=== PATIENT | female | born 1980 | race Caucasian/White ===

== ENCOUNTER 2024-12-27 17:00 | Emergency (ER) | payer BC, SELFPAY ==
--- NOTE | 2024-12-27 17:10 | ED_ITS ---
HPI - URI/Sore Throat General Chief Complaint: Upper Respiratory Infection Stated Complaint: Flu like symptoms Time Seen by Provider: 12/27/24 17:10 Source: patient, RN notes reviewed and old records reviewed Mode of arrival: ambulatory Limitations: no limitations History of Present Illness HPI Narrative: Patient presents with complaints of cough and chest congestion for 2 weeks. She reports that cough is becoming increasingly productive. She states that she has began to notice some wheezing, particularly when lying down at night. She is unsure of fever status. She has been taking Mucinex D with moderate results. She is not in any distress, including respiratory distress. Related Data Home Medications ?Medication ?Instructions ?Recorded ?Confirmed ?Last Taken ?Type alprazolam 0.25 mg tablet mg 12/27/24 Unknown History bupropion HCl 300 mg 24 hr tablet, mg PO 12/27/24 Unknown History extended release duloxetine 30 mg capsule,delayed mg PO 12/27/24 Unknown History release lisdexamfetamine 30 mg capsule mg 12/27/24 Unknown History lisdexamfetamine 40 mg capsule mg 12/27/24 Unknown History Allergies Allergy/AdvReac Type Severity Reaction Status Date / Time No Known Allergies Allergy Verified 12/27/24 17:04 Review of Systems 2 Review of Systems: All systems reviewed & are unremarkable except as noted in HPI and below Constitutional: Constitutional: Reports no additional constitutional complaints and Reports lethargy ENT: Reports system reviewed and no additional complaints, except as documented and Reports nasal congestion Cardiovascular: Cardiovascular: Reports no additional cardiovascular complaints Respiratory: Respiratory: Reports no additional respiratory complaints, Reports chest congestion, Reports cough, Reports excessive phlegm production and Reports wheezing Gastrointestinal: Gastrointestinal: Reports no additional gastrointestinal complaints PMFSH Comments At the time of my signature, I reviewed and agree with the nursing past medical, surgical, social, and family history. There is no relevant family history pertinent to the patient complaint. Exam Const: General: cooperative, no acute distress, alert and awake Orientation/consciousness: oriented to person, oriented to place and oriented to time HENMT: Head: normal to inspection Mouth: Yes moist mucous membranes Throat: posterior oropharynx normal Resp: Effort & Inspection: normal respiratory effort and able to speak in complete sentences Auscultation: clear to auscultation bilaterally, no crackles, no rales, no rhonchi and wheezes scattered wheezes Cardio: Palpation: normal PMI Rate: regular rate Rhythm: regular rhythm Heart sounds: S1 normal heart sound present and S2 normal heart sound present Neuro: General: oriented to person, oriented to place and oriented to time Cranial nerves: Yes CN's II-XII intact bilaterally Psych: Appearance: grossly normal Thought process: Normal thought process present Insight: Good insight present (Psych) Judgement: Good judgement present (Psych) Course Course Level of Care: Express Care Visit Vital Signs Vital signs: Reviewed MDM - URI/Sore Throat MDM Narrative Medical decision making narrative: Patient with cough for 2 weeks. Mild scattered wheezes on exam, no respiratory distress. Start bronchodilators and steroid burst, azithromycin for added anti- inflammatory properties Discharge instructions reviewed with patient, as well as provided in writing per nursing staff. The instructions also include specific and strict return/GO TO THE ER as well as f/u information. All questions have been answered, and the patient deny any further questions with discharge and discharge plan. Some parts of this dictation were generated by voice recognition software and may contain typographical and/or grammatical inaccuracies. Differential Diagnosis Differential diagnosis: Likely upper respiratory infection, otitis media, viral infection, bronchitis and pharyngitis Medical Records Attestation: I reviewed the patient's medical records. Lab Data Attestation: I reviewed the patient's lab results. Discharge Plan Discharge Clinical Impression: Bronchitis Patient Disposition: Home, Self-Care Condition: Stable Instructions: Antibiotic Form, Acute Bronchitis (ED) Additional Instructions: Take medication as prescribed. Follow with primary care provider. Emergency department for new or worse symptoms Patient Language: Occitan Prescriptions: New azithromycin 250 mg tablet See Rx Instructions .ROUTE .COMPLEX Qty: 6 0RF Rx Instructions: For 250 mg dose pack: take 500 mg today (day 1), then 250 mg for 4 days (days 2-5) albuterol sulfate [Ventolin HFA] 90 mcg/actuation HFA aerosol inhaler 2 puff inhalation QID PRN (Reason: shortness of breath or wheezing) Qty: 8.5 0RF prednisone 50 mg tablet 50 mg PO DAILY Qty: 5 0RF benzonatate 200 mg capsule 200 mg PO TID PRN (Reason: cough) Qty: 30 0RF No Action alprazolam 0.25 mg tablet bupropion HCl 300 mg tablet extended release 24 hr PO duloxetine 30 mg capsule,delayed release(DR/EC) PO lisdexamfetamine 30 mg capsule lisdexamfetamine 40 mg capsule Follow-up/Referrals: PHYSICIAN,FUNERAL DIRECTOR [Primary Care Provider] - 2 Weeks Stand Alone Forms: Work/School Release IP Time of Disposition: 17:52
[2024-12-27 17:13] VITALS: BP 117/75; PULSE 97; RESP 16; TEMP 36.8; O2SAT 100
== END 2024-12-27 17:55 | disposition home or self-care (01) ==
PROVIDERS: Emergency Provider Nurse Practitioner Family
DX: J40 Bronchitis, not specified as acute or chronic (principal)
CPT/HCPCS: 99203; G0463

== ENCOUNTER 2025-02-13 20:22 | Emergency (ER) | payer BC, SELFPAY ==
[2025-02-13] VITALS (22 sets, daily range): BP systolic 104–118; BP diastolic 66–76; PULSE 86–92; RESP 15–16; TEMP 36.4–36.8; O2SAT 98–100
--- NOTE | ~2025-02-13 | CT_ITS ---
CLINICAL INDICATION: Left-sided flank pain COMPARISON: None. TECHNIQUE: Multiple contiguous axial images of the abdomen and pelvis were performed without the admi nistration of intravenous contrast The dose-length product (DLP) was 660.35 mGy-cm. Automated exposure control and iterative reconstruction technique were employed. FINDINGS/OBSERVATIONS: Visualized lower thorax: The bilateral lung bases are clear. The heart is of normal size, without pericardial effusion. Liver: The liver demonstrates homogeneous attenuation and is not enlarged. Gallbladder and biliary system: The gallbladder is only minimally distended, and otherwise unremarkable. Pancreas: Limited evaluation of the pancreas secondary to the lack of intravenous contrast. Spleen: Punctate calcifications identified within the splenic parenchyma, suggesting prior granulomat ous disease. The remainder of the spleen demonstrates otherwise homogeneous attenuation and is not enlarged. Kidneys: Global enlargement of the left kidney. 14 mm calculus within the upper pole of the left kidney. Left-sided hydroureteronephrosis without a discrete calculus identified along the course of the left ureter. The right kidney is unremarkable, as is the right ureter. Adrenal glands: Unremarkable. Gastrointestinal tract: Colonic diverticulosis without surrounding inflammatory change. Appendix: The appendix is not definitively visualized. However, no pericecal inflammatory change is identified suggest the presence of acute appendicitis. Vasculature: Unremarkable. Lymph nodes: No pathologically enlarged or morphologically suspicious lymph nodes within the retroperitoneum or at the root of the mesentery. Pelvic structures: The bladder is only minimally distended and otherwise unremarkable.The uterus is anteverted and antef lexed, and otherwise unremarkable. Body wall and musculoskeletal: Small fat-containing umbilical hernia. No significant degenerative disease within the lower thoracic or lumbosacral spine. IMPRESSION: Left-sided hydroureteronephrosis without a discrete calculus identified along the course of the left ureter. 14 mm calculus within the upper pole of the left kidney. Findings suggesting prior granulomatous disease. Reviewed, dictated and finalized at location A. IMPRESSION: Left-sided hydroureteronephrosis without a discrete calculus identified along t he course of the left ureter. 14 mm calculus within the upper pole of the left kidney. Findings suggesting prior granulomatous disease.
--- OUTSIDE RECORDS SUMMARY | 2025-02-13 20:23 | XMS_ITS | Data Portability ---
Author Organization [facility] Address [address] [place] [address] Care Team Providers Care Inspector Penetrant Name Role Phone GUALBERTO COTE Primary Care Provider [phone] Assessment Encounter Date Assessment Date Assessment LastModified by Organization Details LastModified Time 06/08/2023 06/08/2023 Annual gynecological exam performed. Patient will come back in a year unless there are new symptoms. Not available 06/08/2023 18:28:21 Plan of Treatment Reminders Order Date Submit Date Provider Last Modified By Organization Details Last Modified Time Details Appointments PELVIC PAIN 2024 04:00P M ENRRIQUE STREETER NP Not available Not available Not available Lab vitamin D, 25-hydrox y, total, serum 2022 023 [facility] (Lab), [address] [place], [address], 06/11/2023 07:06:51 hormone panel, serum or plasma 2022 023 [facility] (Lab), [address] [place], [address], 06/11/2023 07:06:51 HbA1c (hemoglob in A1c), blood 2022 023 [facility] (Lab), [address] [place], [address], 06/11/2023 07:06:49 lipid panel, blood 2022 023 [facility] (Lab), [address] [facility], [place], [address], 06/11/2023 07:06:49 CBC w/ auto diff 2022 023 [facility] (Lab), [address] [facility], [place], [address], 06/11/2023 07:06:48 CMP, serum or plasma 2022 023 [facility] (Lab), [address] [facility], [place], [address], 06/11/2023 07:06:50 TSH, serum or plasma 2022 023 [facility] (Lab), [address] [facility], [place], [address], 06/11/2023 07:06:50 Referral None recorded. Procedures None recorded. Surgeries None recorded. Imaging MAMMO, screening , bilateral [address] [facility], [address], [place] [address], [place], [address], 10/07/2023 15:49:32 Medication Orders None recorded. Patient TargetsNo targets recorded. Patient InstructionsNo instructions recorded. Reason for Referral None Reported. Results Created Date Observation Date Name Description Value Unit Range Abnormal Flag Note LastModifiedBy Organization Detail LastModifiedTime 06/08/20 23 06/08/2023 IMAGE GUIDE D PAP AND HPV REGAR DLESS image guided Pap, HPV regardless of Pap result SEE RESULT S BELOW CASE REPOR T: Cytol ogy Gynec ologi bryce Repor t Case: [id number] Autho esha g Provi aleksandr: Marino Merrill Colle cted: 06/08 3897 RADIO TESTER Order ing Locat ion: [place] [facility] Recei vaishali: 06/09 0597 First Scree n: Anton mpass ak, Sivil ay, CT Rescr een: Roma Cam ret, CT Speci men: Scree jim Pap - Image d, Cervi x STATE MENT OF ADEQU ACY: Satis facto ry for evalu ation Trans forma tion zone compo nent absen t The absen ce of an endoc ervic al compo nent was confi rmed by an addit ional scree ner. FINAL DIAGN OSIS: Negat reji for Intra epith elial Lesio n or Nelda wells (NIL) . Shift in tobias sugge stive of bacte rial vagin osis. Elect ninfa kim dinora d by Roma Cam ret, CT on 2022 at 6:14 AM ----- ----- ----- ----- ----- ----- ----- ----- ----- ----- ----- ----- ----- ----- ----- ----- ----- ---- HPV RESUL TS: HPV mRNA E6/E7 : No HPV mRNA Detec rebecca NOTE: This high risk HPV mRNA assay detec ts fourt een high- risk HPV types (16, 18, 31, 33, 35, 39, 45, 51, 52, 56, 58, 59, 66, 68) witho ut diffe renti ation . COMME NT: This speci men was revie wed by a Cytot echno logis t and/o r Patho logis t (as indic ated in this repor t) after evalu ation using the Thinp rep Imagi ng Syste m. CLINI BRYCE INFOR MATIO N: Menst rual Statu s: LMP (if appli cable ): Clini bryce Histo ry/Pr eviou s Pap: Type of Neopl demetrius (if appli cable ): Signi fican t Clini bryce Findi ngs: Other Histo ry: Hormo williams (if appli cable ): PAP EDUCA HENRY L NOTE: The Pap Test is a scree jim test with an inher ent false negat reji rate. Liqui d-bas ed sampl ing may decre ase, but will not elimi corky, false negat reji resul ts. A negat reji resul t does not precl ude the prese nce and/o r devel opmen t of disea se, since the prese nce of abnor mal cells in the sampl e depen ds on the locat ion of the lesio n and sampl ing techn ique. Martha nued regul ar scree jim is the best metho d of cance r preve ntion . If repor rebecca cytol ogic findi ng do not corre late with physi bryce and/o r histo rical findi ngs, furth er inves tigat ion is recom wni d, as clini cynthia warrmaci nted. Not Available [facility] (Lab) [address], [place], [address], 06/10/2023 07:19:12 06/08/20 23 06/08/2023 CBC W/DIF F WBC 7.0 10'3/ uL 3.6-10 .2 Not Available [facility] (Lab) [address], [place], [address], 06/11/2023 07:06:48 06/08/20 23 06/08/2023 CBC W/DIF F RBC 4.48 10'6/ uL (based on docume nted legal sex) 4.10-5 .30 Not Available [facility] (Lab) [address], [place], [address], 06/11/2023 07:06:48 06/08/20 23 06/08/2023 CBC W/DIF F HGB 13.5 g/dL (based on docume nted legal sex) 11.9-1 5.8 Not Available [facility] (Lab) [address], [place], [address], 06/11/2023 07:06:48 06/08/20 23 06/08/2023 CBC W/DIF F HCT 42.8 % (based on docume nted legal sex) 37.4-4 8.3 Not Available [facility] (Lab) [address], [place], [address], 06/11/2023 07:06:48 06/08/20 23 06/08/2023 CBC W/DIF F MCV 95.5 fL 82.0-9 9.0 Not Available [facility] (Lab) [address] [facility], [place], [address], 06/11/2023 07:06:48 06/08/20 23 06/08/2023 CBC W/DIF F MCH 30.1 pg 27.0-3 3.0 Not Available [facility] (Lab) [address], [place], [address], 06/11/2023 07:06:48 06/08/20 23 06/08/2023 CBC W/DIF F MCHC 31.5 g/dL 32.0-3 6.0 low Not Available [facility] (Lab) [address], [place], [address], 06/11/2023 07:06:48 06/08/20 23 06/08/2023 CBC W/DIF F RDW 12.9 % 11.0-1 5.0 Not Available [facility] (Lab) [address] [facility], [place], [address], 06/11/2023 07:06:48 06/08/20 23 06/08/2023 CBC W/DIF F plt 251 10'3/ uL 150-45 0 Not Available [facility] (Lab) [address], [place], [address], 06/11/2023 07:06:48 06/08/20 23 06/08/2023 CBC W/DIF F MPV 12.3 fL 9.8-12 .7 Not Available [facility] (Lab) [address] [facility], [place], [address], 06/11/2023 07:06:48 06/08/20 23 06/08/2023 CBC W/DIF F NRBC's 0.0 % 0 Not Available [facility] (Lab) [address] [facility], [place], [address], 06/11/2023 07:06:48 06/08/20 23 06/08/2023 CBC W/DIF F absolute NRBCs 0.0 10'3/ uL 0 Not Available [facility] (Lab) [address] [facility], [place], [address], 06/11/2023 07:06:48 06/08/20 23 06/08/2023 CBC W/DIF F neutrophils 57.6 % 37.0-7 2.0 Not Available [facility] (Lab) [address] [facility], [place], [address], 06/11/2023 07:06:48 06/08/20 23 06/08/2023 CBC W/DIF F lymphocytes 30.4 % 16.0-4 8.0 Not Available [facility] (Lab) [address] [facility], [place], [address], 06/11/2023 07:06:48 06/08/20 23 06/08/2023 CBC W/DIF F monocytes 8.3 % 4.0-14 .0 Not Available [facility] (Lab) [address] [facility], [place], [address], 06/11/2023 07:06:48 06/08/20 23 06/08/2023 CBC W/DIF F eosinophils 3.0 % 0.0-9. 0 Not Available [facility] (Lab) [address] [facility], [place], [address], 06/11/2023 07:06:48 06/08/20 23 06/08/2023 CBC W/DIF F basophils 0.6 % 0.0-2. 0 Not Available [facility] (Lab) [address] [facility], [place], [address], 06/11/2023 07:06:48 06/08/20 23 06/08/2023 CBC W/DIF F immature granulocytes 0.1 % no define d refere nce range Not Available [facility] (Lab) [address] [facility], [place], [address], 06/11/2023 07:06:48 06/08/20 23 06/08/2023 CBC W/DIF F absolute neutrophils 4.0 10'3/ uL 1.1-6. 0 Not Available [facility] (Lab) [address] [facility], [place], [address], 06/11/2023 07:06:48 06/08/20 23 06/08/2023 CBC W/DIF F absolute lymphocytes 2.1 10'3/ uL 0.7-3. 4 Not Available [facility] (Lab) [address] [facility], [place], [address], 06/11/2023 07:06:48 06/08/20 23 06/08/2023 CBC W/DIF F absolute monocytes 0.6 10'3/ uL 0.3-1. 0 Not Available [facility] (Lab) [address] [facility], [place], [address], 06/11/2023 07:06:48 06/08/20 23 06/08/2023 CBC W/DIF F absolute eosinophils 0.2 10'3/ uL 0.0-0. 6 Not Available [facility] (Lab) [address] [facility], [place], [address], 06/11/2023 07:06:48 06/08/20 23 06/08/2023 CBC W/DIF F absolute basophils 0.0 10'3/ uL 0.0-0. 1 Not Available [facility] (Lab) [address] [facility], [place], [address], 06/11/2023 07:06:48 06/08/20 23 06/08/2023 CBC W/DIF F absolute immature granulocytes 0.0 10'3/ uL 0.00-0 .10 2022 4:56 AM: P indic ates parti al resul ts on a panel have been relea sed. Addit ional resul ts will follo w. 2022 4:56 AM: This resul t has been final verif ied. No addit ional or medley ed resul ts are expec rebecca. Not Available [facility] (Lab) [address] [facility], [place], [address], 06/11/2023 07:06:48 06/08/20 23 06/08/2023 HEMOG LOBIN A1C hemoglobin A1C 5.0 % 0-5.6 The Ameri can Diabe ulises Assoc iatio n recom mends that a prima ry goal of thera py shoul d be a HBA1C of < 7% and that physi cians shoul d reeva luate the treat ment regim en in patie nts with HBA1C value s consi stent ly > 8%. <5.7% Lisa l 5.7 - 6.4% Incre ased risk for diabe ulises >=6.5 % Diagn ostic of diabe ulises <7.0% Goal of thera py >8.0% Actio n sugge sted Not Available [facility] (Lab) [address] [facility], [place], [address], 06/11/2023 07:06:49 06/08/2006/08/2023 LIPID PANEL ,AMA (LDL- CALC) total cholesterol 159 mg/dL 0-199 Not Available [facility] (Lab) [address] [facility], [place], [address], 06/11/2023 07:06:49 06/08/2006/08/2023 LIPID PANEL ,AMA (LDL- CALC) triglyceride s 134 mg/dL 0.00-1 50.00 NCEP Refer ence Value s for Trigl yceri salvador: Lisa l: <150 mg/dL Borde rline High: 150 - 199 mg/dL High: 200 - 499 mg/dL Very High: >/= 500 mg/dL Not Available [facility] (Lab) [address] [facility], [place], [address], 06/11/2023 07:06:49 06/08/2006/08/2023 LIPID PANEL ,AMA (LDL- CALC) HDL cholesterol 53 mg/dL >40 Not Available [facility] (Lab) [address] [facility], [place], [address], 06/11/2023 07:06:49 06/08/2006/08/2023 LIPID PANEL ,AMA (LDL- CALC) LDL cholesterol 83 mg/dL 0-99 Cutof f value s recom win d by the Natio nal Ghada stero l Educa tion Progr am: TRUDY ABLE: Ghada stero l <200 mg/dL LDL <100 mg/dL BORDE RLINE : Ghada stero l 200-2 39 mg/dL LDL 101-1 59 mg/dL HIGHE R RISK: Ghada stero l >240 mg/dL LDL >160 mg/dL , HDL <40 mg/dL Not Available [facility] (Lab) [address] [facility], [place], [address], 06/11/2023 07:06:49 06/08/2006/08/2023 LIPID PANEL ,AMA (LDL- CALC) non-HDL cholesterol 106 mg/dL no refere nce range A reaso nable goal for non-H DL ghada stero l is one that is 30 mg/dL highe r than the LDL ghada stero l goal. Not Available [facility] (Lab) [address] [facility], [place], [address], 06/11/2023 07:06:49 06/08/2006/08/2023 LIPID PANEL ,AMA (LDL- CALC) chol/HDL ratio 3.0 . 0.0-5. 0 On February 16, 2023, [facility] labor atori es jasmyne ed the equat ion for calcu latin g estim ated low-d ensit y lipop rotei n-cho leste rol (LDL- C) from the Fried velasquez equat ion to the Sarah n/Dhruv taylor equat ion. This new equat ion is only valid for lipid panel s with trigl yceri salvador < 400 mg/dL . Studi es jose demon strat ed that this new equat ion will impro ve the accur acy of LDL-C , espec ially in scena sanchez when LDL-C vanessa ntrat ions are relat ively low (< 100 mg/dL ), trigl yceri salvador are eleva rebecca, or patie nt is non-f astin g. Refer ences : - Sarah hill, Denton Morel, Gerardo Zafar , Jas hill, Leeroy Coffman, Leeroy garcia, Bran menendez , and Huseyin Pool . 2013. Comp ariso n of a Novel Metho d vs the Fried velasquez Equat ion for Estim ating Low-D ensit y Lipop rotei n Ghada stero l Level s from the Stand [facility] Lipid Profi milad. HIRAM: The Journ al of the Ameri can Medic al Assoc iatio n 310 (19): 2060- . - Elisa diaz V, Sylvia J, Patel diaz A, Dilma M, Jordyn woods R, Franck diaz E, Sulaiman menendez RS, Yrn SR, Sarah hill SS. Fast ing Versu s Nonfa sting and Low-D ensit y Lipop rotei n Ghada stero l Accur acy. Circu latio n. 2017Oct 26;137 (1):1 0-19. Not Available [facility] (Lab) [address] [facility], [place], [address], 06/11/2023 07:06:49 06/08/20 23 06/08/2023 CMP(C OMPRE HENSI VE METAB OLIC PANEL ) sodium 141 mmol/ L 133-14 6 Not Available [facility] (Lab) [address] [facility], [place], [address], 06/11/2023 07:06:50 06/08/20 23 06/08/2023 CMP(C OMPRE HENSI VE METAB OLIC PANEL ) potassium 4.0 mmol/ L 3.5-5. 1 Not Available [facility] (Lab) [address] [place], [address], 06/11/2023 07:06:50 06/08/20 23 06/08/2023 CMP(C OMPRE HENSI VE METAB OLIC PANEL ) chloride 107 mmol/ L 98-107 Not Available [facility] (Lab) [address] [facility], [place], [address], 06/11/2023 07:06:50 06/08/20 23 06/08/2023 CMP(C OMPRE HENSI VE METAB OLIC PANEL ) carbon dioxide 24 mmol/ L 21-31 Not Available [facility] (Lab) [address] [facility], [place], [address], 06/11/2023 07:06:50 06/08/20 23 06/08/2023 CMP(C OMPRE HENSI VE METAB OLIC PANEL ) anion gap 10 mmol/ L 4-13 Not Available [facility] (Lab) [address] [facility], [place], [address], 06/11/2023 07:06:50 06/08/20 23 06/08/2023 CMP(C OMPRE HENSI VE METAB OLIC PANEL ) blood urea nitrogen 8 mg/dL 7-25 Not Available [facility] (Lab) [address] [facility], [place], [address], 06/11/2023 07:06:50 06/08/20 23 06/08/2023 CMP(C OMPRE HENSI VE METAB OLIC PANEL ) creatinine 0.88 mg/dL 0.60-1 .30 Not Available [facility] (Lab) [address] [facility], [place], [address], 06/11/2023 07:06:50 06/08/20 23 06/08/2023 CMP(C OMPRE HENSI VE METAB OLIC PANEL ) egfrcr (CKD-epi 2020) 83 mL/mi n/1.7 3_m2 >=60 Not Available [facility] (Lab) [address] [facility], [place], [address], 06/11/2023 07:06:50 06/08/20 23 06/08/2023 CMP(C OMPRE HENSI VE METAB OLIC PANEL ) calcium 9.4 mg/dL 8.3-10 .5 Not Available [facility] (Lab) [address] [facility], [place], [address], 06/11/2023 07:06:50 06/08/20 23 06/08/2023 CMP(C OMPRE HENSI VE METAB OLIC PANEL ) glucose 98 mg/dL 70-100 Not Available [facility] (Lab) [address] [facility], [place], [address], 06/11/2023 07:06:50 06/08/20 23 06/08/2023 CMP(C OMPRE HENSI VE METAB OLIC PANEL ) protein, total 6.2 g/dL 6.4-8. 3 low Not Available [facility] (Lab) [address] [facility], [place], [address], 06/11/2023 07:06:50 06/08/20 23 06/08/2023 CMP(C OMPRE HENSI VE METAB OLIC PANEL ) albumin 4.0 g/dL 3.5-5. 0 Not Available [facility] (Lab) [address] [facility], [place], [address], 06/11/2023 07:06:50 06/08/20 23 06/08/2023 CMP(C OMPRE HENSI VE METAB OLIC PANEL ) ALT 13 units /L 9-43 Not Available [facility] (Lab) [address] [facility], [place], [address], 06/11/2023 07:06:50 06/08/20 23 06/08/2023 CMP(C OMPRE HENSI VE METAB OLIC PANEL ) alkaline phosphatase 51 units /L 34-104 Not Available [facility] (Lab) [address] [facility], [place], [address], 06/11/2023 07:06:50 06/08/20 23 06/08/2023 CMP(C OMPRE HENSI VE METAB OLIC PANEL ) AST 15 units /L 13-39 Not Available [facility] (Lab) [address] [facility], [place], [address], 06/11/2023 07:06:50 06/08/20 23 06/08/2023 CMP(C OMPRE HENSI VE METAB OLIC PANEL ) bilirubin, total 0.4 mg/dL 0.2-1. 2 Not Available [facility] (Lab) [address] [facility], [place], [address], 06/11/2023 07:06:50 06/08/20 23 06/08/2023 TSH, REFLE X FREE T4 TSH 1.36 uIU/m L 0.30-5 .33 Not Available [facility] (Lab) [address] [facility], [place], [address], 06/11/2023 07:06:50 06/08/20 23 06/08/2023 FSH, LH, ESTRA DIOL estradiol 258.0 pg/mL This assay was perfo rmed using [employer] ratio n reage nts and test kits. Value s obtai amparo with other assay metho ds or kits canno t be used inter medley eably . Femal e Estra diol Range s: Folli cular phase 12.4- 233 pg/mL Ovula tion phase 41.0- 398 pg/mL Lutea l phase 22.3- 341 pg/mL Postm enopa usal< 5-138 pg/mL Healt hy Pregn ant Women 1st Trime ster1 54-32 43 pg/mL 2nd Trime ster1 561-2 1280 pg/mL 3rd Trime ster8 525-> 51952 pg/mL Not Available [facility] (Lab) [address] [facility], [place], [address], 06/11/2023 07:06:51 06/08/20 23 06/08/2023 FSH, LH, ESTRA DIOL FSH 2.5 mIU/m L This assay was perfo rmed using [employer] ratio n reage nts and test kits. Value s obtai amparo with other assay metho ds or kits canno t be used inter medley eably . Femal es Folli cular : 3.5-1 2.5 mIU/m L Ovula tion: 4.7-2 1.5 mIU/m L Lutea l: 1.7-7 .7 mIU/m L Postm enopa use: 25.8- 134.8 mIU/m L Not Available [facility] (Lab) [address] [facility], [place], [address], 06/11/2023 07:06:51 06/08/20 23 06/08/2023 FSH, LH, ESTRA DIOL LH 3.8 mIU/m L This assay was perfo rmed using [employer] n reage nts and test kits. Value s obtai amparo with other assay metho ds or kits canno t be used inter medley eably . Femal es Mid-F ollic ular: 2.4-1 2.6 mIU/m L Mid-C ycle: 14.0- 95.6 mIU/m L Mid-L uteal : 1.0-1 1.4 mIU/m L Postm enopa use: 7.7-5 8.5 mIU/m L Not Available [facility] (Lab) [address] [facility], [place], [address], 06/11/2023 07:06:51 06/08/20 23 06/08/2023 VITAM IN D, 25-OH (TOTA L D2/D3 ) vitamin D, 25-hydroxy, total 40.1 NG/mL 30.0-1 00.0 Sugge stive of Defic iency : <20 ng/mL Sugge stive of Insuf ficie ncy: 20-29 ng/mL Sugge stive of Suffi cienc y: 30-10 0 ng/mL Sugge stive of Toxic ity: >150 ng/mL Not Available [facility] (Lab) [address] [facility], [place], [address], 06/11/2023 07:06:51 Result Notes None recorded. Problems Name Problem SNOMED Code Status Onset Date Resolution Date Notes Provider Name and Address Organization Details Recorded Time SNOMED CT Concept Active 2015 Encntr for general adult medical exam w/o abnormal findings;R ecorded Elsewhere: No Locatio n: [facility] rce: EHR Chroni c: N Practice ID: 0001 Billa ble Time: 10:30:00 AM Not Available [facility] 0 15:59:51 Sterilizat ion procedure Active 2016 Encounter for sterilizat ion;Record ed Elsewhere: No Locatio n: [facility] rce: EHR Chroni c: N Practice ID: 0001 Billa ble Time: 03:00:00 PM Not Available [facility] 0 15:59:51 Uterine leiomyoma 75697388 Active 2017 Leiomyoma of uterus;Rec orded Elsewhere: No Locatio n: [facility] rce: EHR Chroni c: N Practice ID: 0001 Billa ble Time: 05:00:00 PM Not Available [facility] 0 15:59:51 Breast lump Active 2015 Fibrocysti c disease of breast;Rec orded Elsewhere: No Locatio n: [facility] rce: EHR Chroni c: N Practice ID: 0001 Billa ble Time: 01:45:00 PM Not Available [facility] 0 15:59:51 Disorder of breast [id number] Active 2015 Disorder of breast, unspecifie d;Recorded Elsewhere: No Locatio n: [facility] rce: EHR Chroni c: N Practice ID: 0001 Billa ble Time: 10:30:00 AM Not Available [facility] 0 15:59:[address] Concept Active 2016 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) w/o abn findings;R ecorded Elsewhere: No Locatio n: [facility] rce: EHR Chroni c: N Practice ID: 0001 Billa ble Time: 01:00:00 PM Not Available [facility] 0 15:59:51 Breast lump [id number] Active 2015 Unspecifie d lump in breast;Rec orded Elsewhere: No Locatio n: [facility] rce: EHR Chroni c: N Practice ID: 0001 Billmaci ble Time: 01:02:12 PM Not Available [facility] 0 15:59:51 Education Active 2016 Encounter for oth general cnsl and advice on contracept ion;Practi ce ID: 0001 Not Available [facility] 0 15:59:51 Problem Notes None recorded. Procedures Surgical History Date Name Laterality Status Provider Name and Address Organization Details Recorded Time 1 Date of Last Pap Smear completed [facility] 06/08/2023 18:29:13 Tubal Ligation completed [facility] 06/08/2023 18:29:22 Imaging Results None recorded. Procedure Notes None recorded. Medical Equipment None Reported. Allergies No known drug allergies Medications Name Sig Start Date Stop Date Status Note LastModified by Organization Details LastModified Time amoxicill in 500 mg tablet TAKE 1 TABLET BY MOUTH THREE TIMES DAILY UNTIL GONE 06/08 completed Not Available Not Available Not Available alprazola m 0.25 mg tablet TAKE 1 TABLET BY MOUTH TWICE DAILY NEEDED FOR ANXIETY active Not Available Not Available No t Available dexametha sone 0.5 mg tablet TAKE 1 TABLET BY MOUTH THREE TIMES DAILY UNTIL ALL TAKEN 06/08 completed Not Available Not Available Not Available Ambien 5 mg tablet take 2 tablet by oral route every day at bedtime 09/07 completed Prescrib ed Elsewher e: Yes [facility] By: haydee correa DateTime : 04/09/20 16 10:30:00 AM Not Available Not Available Not Available aripipraz ole 5 mg tablet TAKE 1 TABLET BY MOUTH DAILY 06/08 completed Not Available Not Available Not Available Cymbalta 20 mg capsule,d elayed release take 3 Capsule by oral route every day 06/08 completed Prescrib ed Elsewher e: Yes Loca tion: [facility] M odify By: haydee suer DateTime : 04/09/20 16 10:30:00 AM Not Available Not Available Not Available Cymbalta 60 mg capsule,d elayed release Take 1 capsule every day by oral route. active Not Available Not Available No t Available Cymbalta 30 mg capsule,d elayed release Take 1 capsule every day by oral route. active Not Available Not Available No t Available Cymbalta 06/08 completed Not Available Not Available Not Available aripipraz ole 2 mg tablet TAKE 1 TABLET BY MOUTH EVERY NIGHT AT BEDTIME 06/08 completed Not Available Not Available Not Available Vitals Date Recorded Body height Body mass index (BMI) Body weight Systolic blood pressure Diastolic blood pressure Provider Name and Address Organization Details Last Updated DateTime 06/08/2023 165.1 cm 30.6 kg/m2 86738 g 125 mm[Hg] 76 mm[Hg] Christa Arenas [facility] 3 18:29:02 Social History Question Answer Notes LastModified by Organizat ion Details LastModified Time What Is Your Level Of Alcohol Consumption? Occasional Information not available 06/08/2023 Are You Blind Or Do You Have Difficulty Seeing? No Information n ot available 06/08/2023 What Is Your Level Of Caffeine Consumption? Moderate Information not available 06/08/2023 In The 14 Days Before Symptom Onset, Have You Had Close Contact With A Laboratory-confirm ed COVID-19 While That Case Was Ill? No Information n ot available 06/08/2023 In The 14 Days Before Symptom Onset, Have You Had Close Contact With A Person Who Is Under Investigation For COVID-19 While That Person Was Ill? No Information not available 06/08/2023 Have You Been To An Area Known To Be High Risk For COVID-19? No Information not available 06/08/2023 Are You Deaf Or Do You Have Serious Difficulty Hearing? No Information not available 06/08/2023 What Is The Highest Grade Or Level Of School You Have Completed Or The Highest Degree You Have Received? 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 No Information not available 06/08/2023 Do You Use Your Seat Belt Or Car Seat Routinely? Yes Information not available 06/08/2023 Do You Have Smoke And Carbon Monoxide Detectors In Your Home? Yes Information not available 06/08/2023 How Much Tobacco Do You Smoke? No Information not available 06/08/2023 Do You Feel Stressed (tense, Restless, Nervous, Or Anxious, Or Unable To Sleep At Night)? [id number] Information not available 06/08/2023 Do You Use Any Illicit Or Recreational Drugs? No Information not available 06/08/2023 Do You Use Sunscreen Routinely? Yes Information not available 06/08/2023 Have You Used IV Drugs? No Information not available 06/08/2023 Sex: Unknown Functional Status Question Answer Note LastModified by Organization D etails LastModified Time Are you able to walk? YESWOREST Information not available 06/08/2023 What is your exercise level? Moderate Information not available 06/08/2023 Mental Status None recorded. Family History Relationship Description Onset Age of this Age Resolved Age Notes LastModified by Organization Details LastModified Time Brother Depressive disorder Not available 2022 18:29:06 Father Depressive disorder Not available 2022 18:29:06 Mother Depressive disorder Not available 2022 18:29:06 Maternal Grandmother Depressive disorder Not available 2022 18:29:06 Sister Depressive disorder Not available 2022 18:29:06 Maternal Grandfather Depressive disorder Not available 2022 18:29:06 Notes:Maternal grandmother: Diabetes mellitus Medical History Condition Response Anxiety Disorder Y Thyroid Problems Y Depression/ depression Y Gynecological History Statement/Question Response Date of LMP 05/21/2023 N STIs/STDs N Was last menstrual period normal Y HPV Vaccine N Are cycles usually normal N Sexually Active? Y Menses Monthly N Age of first menstrual cycle 11 Date of Last Pap Smear 06/14/2021 Sexual Problems? N LMP Approximate N Obstetrics History GPAL:G 0 P 0 0 0 0 Past Encounters Encounter ID Performer Location Encounter Start Date Encounter Closed Date Diagnosis/Indication Diagnosis SNOMED-CT Code Diagnosis ICD10 Code Diagnosis Note [id number] Alina Morales , [facility] [address] [place] [address] 06/08/2023 18:08:33 06/09/2023 09:58:09 Gynecologic examination 54811984 Z01.419 Suggested Calcium with Vitamin D 1200-1500m g daily. Patient advised to get an annual flu shot in the fall and she could obtain at [facility] or [facility] clinic. Also to obtain TDap vaccinatio n if you have not had one in the last 10 years. Recommend yearly mammograms . Encouraged monthly self breast exams. Encourage safe sexual practices, to use condoms and limit partners if not already in a monogamous relationsh ip. Engage in daily exercise of low impact aerobic exercise 45-60 minutes 4-5 times weekly. Avoid tobacco and illicit drugs as well as using moderation with alcohol intake less than 1-2 8 oz beverages daily. This lifestyle behavior pattern will lead to less health conditions and longer life span. If BMI greater than 25 weight watchers or dietary consult advised. All questions have been answered. Patient appears to understand informatio n, but if you have any questions please call or respond to this email.Pap/ hpv sentSTD Screen declinedGe netic Screen discussedC olon Screen naDexa Screen naRoutine Labs PCP Adult heal th examination 632708643 Z00.00 Will await labsHx of thyroid issues 5yrs ago Vitamin D deficiency 347 91990 E55.9 Irregular periods [id number] N92.6 Perimenopa use.q1-2mo s Screening mammography 24 674910 Z12.31 Major depr essive disorder [id number] F32.[address]Suggest ed mentioning Auvelity to see if she is a good candidate for this medication . Health Concerns Section Related Observation LastModified by Organization Detai ls LastModified Time None Recorded Concern Status LastModified by Organization Details LastModified Time None Recorded Advance Directives Directive None Recorded Payers Encounter Date Sequence Insurance Name Policy Number Policy Early Covered Member ID Early Member ID Guarantor Name 06/08/2023 1 [place] [id number] Amanda De La Rosa [id number] Amanda Estrella Notes Date Note Type Note Provider Name and Address Organization Details Recorded Time 06/08/2023 text/html Annual GYNReport ed bypatient.Menstrua l cycle:Irregular cycle intervals Urinary symptoms:No hematuria; No incontinence Vulva:No genital lesion Vagina:Normal vaginal discharge Breast:No breast pain; No breast lump; No nipple discharge Current Contraception:Obie h control not practiced Sexual complaints:No sexual complaints; No pain during intercourse; Normal libido Menopausal Symptoms:No menopausal symptoms; Normal vaginal lubrication Psychological symptoms:No depression; No anxiety; No PMDD Preventive measures:Encourage self breast examination; Encourage regular exercise; Encourage no tobacco use; Encourage regular mammograms starting age 40; Followed with yearly pap smears; Needs to schedule mammogram Alina Morales, [facility] [address], [place], [address], [facility] 06/08/2023 18:50:35 OBGyn Episode No OBEpisode recorded.
[2025-02-13] MEDS: SODIUM CHLORIDE 0.9% IV 1,000 ML 999 ML IV CONT (20:42)
[2025-02-13] MEDS: ONDANSETRON INJ 4 MG/2 ML VIAL IV PUSH (20:42)
[2025-02-13] MEDS: MORPHINE SULFATE (*CRX) 4 MG/ML INJ IV PUSH (20:42)
[2025-02-13 20:46] LABS: BEDSIDEPREGUCG Negative (Negative)
[2025-02-13 20:49] LABS: Basophils Percent Auto 0.4 % (0.2-1.2); Eosinophils Absolute Auto 0.1 K/mm3 (0-0.3); Hemoglobin 11.4 g/dL (12.0-15.0); Immature Granulocyte Absolute 0.05 K/mm3 (0.00-0.031); Immature Granulocyte Percent A 0.5 % (0-0.5); Lymphocytes Percent Auto 28.2 % (18.3-44.2); Mean Corpuscular HGB Conc 31.7 g/dl (32-36); Mean Corpuscular Hemoglobin 30.1 pg (26-34); Monocytes Absolute Auto 1.2 K/mm3 (0.1-0.6); Monocytes Percent Auto 12.2 % (2.6-8.5); Neutrophils Absolute Auto 5.5 K/mm3 (1.3-6.7); Neutrophils Percent Auto 57.7 % (45.5-73.1); Platelet Count Result 439 k/mm3 (150-375); Red Blood Count 3.79 M/mm3 (4.2-5.4); Red Cell Distribution Width 12.3 % (11.5-14.5); White Blood Count 9.6 K/mm3 (4.5-10.0)
[2025-02-13 20:52] LABS: Add Urine Microscopic? YES; Appearance Urine Cloudy (Clear); Bacteria Urine Rare /hpf; Bilirubin Urine Negative (Negative); Blood Urine Trace (Negative); Color Urine Yellow (Yellow); Glucose Urine UA Negative (Negative); Ketones Urine Negative (Negative); Leukocyte Esterase Ur 3+ LEU/UL (Negative); Nitrate Urine Negative (Negative); Protein Urine Negative (Negative); RBC Urine 0-2 /hpf (0-2); Specific Grav Ur 1.008 (1.001-1.035); Squamous Epithelial Cell Urine Moderate /hpf (Few); Urobilinogen Urine 0.2 mg/dL (<2.0); WBC Urine 51-100 /hpf (0-3)
[2025-02-13 21:00] LABS: Alanine Aminotransferase 22 U/L (6-35); Alkaline Phosphatase 115 U/L (38-126); Anion Gap 9 mmol/L (4-12); Aspartate Amino Transferase 16 U/L (14-36); Bilirubin,Total 0.3 mg/dL (0.2-1.3); Blood Urea Nitrogen 17 mg/dL (7-17); Calcium 8.6 mg/dL (8.4-10.2); Carbon Dioxide 27 mmol/L (22-30); Chloride 101 mmol/L (98-107); Estimated CRCL calculation 69 ml/min; Estimated Glomerular Filt Rate > 60; Glucose 93 mg/dL (65-110); Sodium 137 mmol/L (137-145)
--- NOTE | 2025-02-13 23:00 | ED_ITS ---
HPI - General Adult General Chief complaint: Abdominal Pain Stated complaint: kidney stone Time Seen by Provider: 02/13/25 20:30 History of Present Illness HPI narrative: patient is a 44-year-old female who presents emergency department with chief complaint of left flank pain. Patient reports he was seen in urgent care diagnosed with the UTI they were also concerned there was a possible kidney stone the patient does have prior history of kidney stones and has been able to pass the previous stones. The patient denies fever Related Data Home Medications ?Medication ?Instructions ?Recorded ?Confirmed ?Last Taken ?Type alprazolam 0.25 mg tablet mg 12/27/24 Unknown History bupropion HCl 300 mg 24 hr tablet, mg PO 12/27/24 Unknown History extended release duloxetine 30 mg capsule,delayed mg PO 12/27/24 Unknown History release lisdexamfetamine 30 mg capsule mg 12/27/24 Unknown History lisdexamfetamine 40 mg capsule mg 12/27/24 Unknown History Allergies Allergy/AdvReac Type Severity Reaction Status Date / Time No Known Allergies Allergy Verified 02/13/25 20:28 Review of Systems 2 Review of Systems: A 10 system review of systems was completed on the patient and is negative except for what is stated in the HPI. Nursing and ancillary documentation was reviewed. Exam 2 Narrative: GENERAL: Well-appearing, well-nourished, and in no acute distress. HEAD: Normocephalic, atraumatic. EYES: PERRLA and EOMI. ENT: Nares clear, no rhinorrhea or epistaxis. Mucous membranes moist. NECK: Supple. CHEST: Clear to auscultation. No respiratory distress. HEART: Regular rate and rhythm. No murmur heard. Normal peripheral pulses. ABDOMEN: Soft, nontender, nondistended, normal active bowel sounds. EXTREMITIES: Normal range of motion. No edema. SKIN: Warm, dry, no rash. NEURO: No focal deficits. Alert and oriented x3. PSYCH: Normal mood and affect. Course Vital Signs Vital signs: Vital Signs Temperature 36.4 C 02/13/25 20:24 Pulse Rate 92 02/13/25 20:24 Respiratory Rate 15 02/13/25 20:24 Blood Pressure 117/68 02/13/25 20:24 Pulse Oximetry 100 02/13/25 20:24 Oxygen Delivery Room Air 02/13/25 20:24 Temperature 36.4 C 02/13/25 20:24 Pulse Rate 92 02/13/25 20:24 Respiratory Rate 15 02/13/25 20:24 Blood Pressure 117/68 02/13/25 20:24 Pulse Oximetry 100 02/13/25 20:24 Oxygen Delivery Room Air 02/13/25 20:24 Medical Decision Making MDM Narrative Medical decision making narrative: Differential diagnosis includes UTI, pyelonephritis, obstructing stone urinalysis showed 51-100 white blood cells the patient did receive a dose of Rocephin at the urgent care prior to transfer to the emergency department. CT scan showed some mild hydronephrosis of the left kidney but no evidence of obstructing stone there was a stone present in the kidney but is nonobstructing. the case was discussed with Dr. diaz who recommended the patient follow-up with the urology clinic. Vital Signs Vital Signs: Vital Signs Temperature 36.4 C 02/13/25 20:24 Pulse Rate 92 02/13/25 20:24 Respiratory Rate 15 02/13/25 20:24 Blood Pressure 117/68 02/13/25 20:24 Pulse Oximetry 100 02/13/25 20:24 Oxygen Delivery Room Air 02/13/25 20:24 Temperature 36.4 C 02/13/25 20:24 Pulse Rate 92 02/13/25 20:24 Respiratory Rate 15 02/13/25 20:24 Blood Pressure 117/68 02/13/25 20:24 Pulse Oximetry 100 02/13/25 20:24 Oxygen Delivery Room Air 02/13/25 20:24 Lab Data 02/13/25 20:43 02/13/25 20:43 Labs: Lab Results 02/13/25 02/13/25 Range/Units 20:43 20:45 WBC 9.6 (4.5-10.0) K/mm3 RBC 3.79 L (4.2-5.4) M/mm3 Hgb 11.4 L (12.0-15.0) g/dL Hct 36.0 L (37.0-47.0) % MCV 95.0 (80-100) fl MCH 30.1 (26-34) pg MCHC 31.7 L (32-36) g/dl RDW 12.3 (11.5-14.5) % Plt Count 439 H (150-375) k/mm3 MPV 9.0 (7.4-10.4) fl Immature Gran % (Auto) 0.5 (0-0.5) % Neut % (Auto) 57.7 (45.5-73.1) % Lymph % (Auto) 28.2 (18.3-44.2) % [place] % (Auto) 12.2 H (2.6-8.5) % Eos % (Auto) 1.0 (0-4.4) % Baso % (Auto) 0.4 (0.2-1.2) % Lymph # (Auto) 2.70 (0.9-3.2) K/mm3 [place] # (Auto) 1.2 H (0.1-0.6) K/mm3 Eos # (Auto) 0.1 (0-0.3) K/mm3 Baso # (Auto) 0.0 (0.0-0.1) K/mm3 Abs Immat Gran (auto) 0.05 H (0.00-0.031) K/mm3 Absolute Neuts (auto) 5.5 (1.3-6.7) K/mm3 Absolute Nucleated RBC 0.000 (0.0-0.012) K/mm3 Nucleated RBC % 0.0 (0.0-0.2) % Sodium 137 (137-145) mmol/L Potassium 4.0 (3.4-5.0) mmol/L Chloride 101 (98-107) mmol/L Carbon Dioxide 27 (22-30) mmol/L Anion Gap 9 (4-12) mmol/L BUN 17 (7-17) mg/dL Creatinine 0.80 (0.7-1.0) mg/dL Estim Creat Clear Calc 69 ml/min Estimated GFR > 60 (59 - ) Glucose 93 (65-110) mg/dL Calcium 8.6 (8.4-10.2) mg/dL Total Bilirubin 0.3 (0.2-1.3) mg/dL AST 16 (14-36) U/L ALT 22 (6-35) U/L Alkaline Phosphatase 115 (38-126) U/L Total Protein 7.0 (6.3-8.2) g/dL Albumin 4.0 (3.5-5.1) g/dL Urine Color Yellow (Yellow) Urine Appearance Cloudy H (Clear) Urine pH 6.0 (5.0-9.0) Ur Specific [place] 1.008 (1.001-1.035) Urine Protein Negative (Negative) mg/dL Urine Glucose (UA) Negative (Negative) mg/dL Urine Ketones Negative (Negative) mg/dL Ur Blood (Man) Trace (Negative) Urine Nitrate Negative (Negative) Urine Bilirubin Negative (Negative) Urine Urobilinogen 0.2 (<2.0) mg/dL Leukocyte Esterase Rfl 3+ H (Negative) ISRA[place]/UL Urine RBC 0-2 (0-2) /hpf Urine WBC 51-100 H (0-3) /hpf Ur Squamous Epith Cells Moderate (Few) /hpf Urine Bacteria Rare /hpf Urine Casts 3-5 POC Urine HCG, Qual Negative (Negative) Discharge Plan Discharge Clinical Impression: UTI (urinary tract infection), Hydronephrosis Patient Disposition: Home Condition: Stable Instructions: Antibiotic Form, Urinary Tract Infection in Women (ED), Abdominal Pain (ED), Hydronephrosis (ED) Additional Instructions: the CT scan shows that you have some mild hydronephrosis. At this time there was not an obstructing kidney stone. You do have a kidney stone that is present in the kidney but this is not obstructing at this time should not be causing a problem. Please follow-up with neurology BP developed high fevers and severe flank pain please return to the emergency department. Patient Language: Fijian Prescriptions: New cephalexin 500 mg capsule 500 mg PO TID 7 Days Qty: 21 0RF No Action alprazolam 0.25 mg tablet bupropion HCl 300 mg tablet extended release 24 hr PO duloxetine 30 mg capsule,delayed release(DR/EC) PO lisdexamfetamine 30 mg capsule lisdexamfetamine 40 mg capsule azithromycin 250 mg tablet See Rx Instructions .ROUTE .COMPLEX Qty: 6 0RF Rx Instructions: For 250 mg dose pack: take 500 mg today (day 1), then 250 mg for 4 days (days 2-5) albuterol sulfate [Ventolin HFA] 90 mcg/actuation HFA aerosol inhaler 2 puff inhalation QID PRN (Reason: shortness of breath or wheezing) Qty: 8.5 0RF prednisone 50 mg tablet 50 mg PO DAILY Qty: 5 0RF benzonatate 200 mg capsule 200 mg PO TID PRN (Reason: cough) Qty: 30 0RF Follow-up/Referrals: Tim Diaz MD [Physician] - Fara Russell MD [Primary Care Provider] - Time of Disposition: 23:03
== END 2025-02-13 23:15 | disposition home or self-care (01) ==
PROVIDERS: Emergency Provider Emergency Medicine; PCP Family Medicine
DX: N39.0 Urinary tract infection, site not specified (principal); N13.30 Unspecified hydronephrosis
CPT/HCPCS: 36415; 74176; 80053; 81001; 81025; 85025; 96361; 96374; 96375; 99284; J2270; J2405; J7030

== ENCOUNTER 2025-05-10 22:06 | Emergency (ER) | payer BC, SELFPAY ==
--- OUTSIDE RECORDS SUMMARY | 2025-05-10 22:07 | XMS_ITS | Data Portability ---
Author Organization [facility] Address [address] [place] [address] Care Team Providers Care Casino Surveillance Officer Name Role Phone GUALBERTO COTE Primary Care Provider [phone] Assessment Encounter Date Assessment Date Assessment LastModified by Organization Details LastModified Time 06/08/2023 06/08/2023 Annual gynecological exam performed. Patient will come back in a year unless there are new symptoms. Not available 06/08/2023 18:28:21 05/08/2025 05/08/2025 Annual gynecological exam performed. Patient will come back in a year unless there are new symptoms. [email or web address] Not available 05/08/2025 17:12:48 Plan of Treatment Reminders Order Date Submit Date Provider Last Modified By Organization Details Last Modified Time Details Appointments None recorded. Lab vitamin D, 25-hydroxy , total, serum 2022 023 [facility] (Lab), [address], [place], [address], 3 07:06:51 hormone panel, serum or plasma 2022 023 [facility] (Lab), [address], [place], [address], 3 07:06:51 HbA1c (hemoglobi n A1c), blood 2022 023 [facility] (Lab), [address], [place], [address], 3 07:06:49 lipid panel, blood 2022 023 [facility] (Lab), [address], [place], [address], 3 07:06:49 CBC w/ auto diff 2022 023 [facility] (Lab), [address], [place], [address], 3 07:06:48 CMP, serum or plasma 2022 023 [facility] (Lab), [address], [place], [address], 3 07:06:50 TSH, serum or plasma 2022 023 [facility] (Lab), [address], [place], [address], 3 07:06:50 Referral None recorded. Procedures None recorded. Surgeries None recorded. Imaging MAMMO, screening, bilateral [address] [facility], [address], [address], [place], [address], 3 15:49:32 Medication Orders None recorded. 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 Elect ninfa judy dinora d by Roma Cam ret, CT [...] Thinp rep Imagi ng Syste m. CLINI GAYE INFOR MATIO N: Menst rual Statu s: LMP (if appli cable ): Clini gaye Histo ry/Pr eviou s Pap: Type of Neopl demetrius (if appli cable ): Signi fican t Clini gaye Findi ngs: Other Histo ry: Hormo williams [...] ng do not corre late with physi gaye and/o r histo rical findi ngs, furth er inves tigat ion is recom win d, as clini cynthia gaona nted. Not Available [facility] (Lab) [address], [place], [address], 06/10/2023 07:19:12 06/08/20 23 06/08/2023 CBC W/DIF F WBC 7.0 10'3/ uL 3.6-10 .2 Not Available [facility] (Lab) [address], [place], [address], 06/11/2023 07:06:48 06/08/20 23 06/08/2023 CBC W/DIF F RBC 4.48 10'6/ uL (based on docume nted legal sex) 4.10-5 .30 Not Available [facility] (Lab) [address], [place], [address], 06/11/2023 07:06:48 06/08/20 23 06/08/2023 CBC W/DIF F HGB 13.5 g/dL (based on docume nted legal sex) 11.9-1 5.8 Not Available [facility] (Lab) [address], [place], [address], 06/11/2023 07:06:48 06/08/20 23 06/08/2023 CBC W/DIF F HCT 42.8 % (based on docume nted legal sex) 37.4-4 8.3 Not Available [facility] (Lab) [address], [place], [address], 06/11/2023 07:06:48 06/08/20 23 06/08/2023 CBC W/DIF F MCV 95.5 fL 82.0-9 9.0 Not Available [facility] (Lab) [address], [place], [address], 06/11/2023 07:06:48 06/08/20 23 06/08/2023 CBC W/DIF F MCH 30.1 pg 27.0-3 3.0 Not Available [facility] (Lab) [address], [place], [address], 06/11/2023 07:06:48 06/08/20 23 06/08/2023 CBC W/DIF F MCHC 31.5 g/dL 32.0-3 6.0 low Not Available [facility] (Lab) [address], [place], [address], 06/11/2023 07:06:48 06/08/20 23 06/08/2023 CBC W/DIF F RDW 12.9 % 11.0-1 5.0 Not Available [facility] (Lab) [address], [place], [address], 06/11/2023 07:06:48 06/08/20 23 06/08/2023 CBC W/DIF F plt 251 10'3/ uL 150-45 0 Not Available [facility] (Lab) [address], [place], [address], 06/11/2023 07:06:48 06/08/20 23 06/08/2023 CBC W/DIF F MPV 12.3 fL 9.8-12 .7 Not Available [facility] (Lab) [address], [place], [address], 06/11/2023 07:06:48 06/08/20 23 06/08/2023 CBC W/DIF F NRBC's 0.0 % 0 Not Available [facility] (Lab) [address], [place], [address], 06/11/2023 07:06:48 06/08/20 23 06/08/2023 CBC W/DIF F absolute NRBCs 0.0 10'3/ uL 0 Not Available [facility] (Lab) [address], [place], [address], 06/11/2023 07:06:48 06/08/20 23 06/08/2023 CBC W/DIF F neutrophils 57.6 % 37.0-7 2.0 Not Available [facility] (Lab) [address], [place], [address], 06/11/2023 07:06:48 06/08/20 23 06/08/2023 CBC W/DIF F lymphocytes 30.4 % 16.0-4 8.0 Not Available [facility] (Lab) [address], [place], [address], 06/11/2023 07:06:48 06/08/20 23 06/08/2023 CBC W/DIF F monocytes 8.3 % 4.0-14 .0 Not Available [facility] (Lab) [address], [place], [address], 06/11/2023 07:06:48 06/08/20 23 06/08/2023 CBC W/DIF F eosinophils 3.0 % 0.0-9. 0 Not Available [facility] (Lab) [address], [place], [address], 06/11/2023 07:06:48 06/08/20 23 06/08/2023 CBC W/DIF F basophils 0.6 % 0.0-2. 0 Not Available [facility] (Lab) [address] [place], [address], 06/11/2023 07:06:48 06/08/20 23 06/08/2023 CBC W/DIF F immature granulocytes 0.1 % no define d refere nce range Not Available [facility] (Lab) [address], [place], [address], 06/11/2023 07:06:48 06/08/20 23 06/08/2023 CBC W/DIF F absolute neutrophils 4.0 10'3/ uL 1.1-6. 0 Not Available [facility] (Lab) [address], [place], [address], 06/11/2023 07:06:48 06/08/20 23 06/08/2023 CBC W/DIF F absolute lymphocytes 2.1 10'3/ uL 0.7-3. 4 Not Available [facility] (Lab) [address], [place], [address], 06/11/2023 07:06:48 06/08/20 23 06/08/2023 CBC W/DIF F absolute monocytes 0.6 10'3/ uL 0.3-1. 0 Not Available [facility] (Lab) [address], [place], [address], 06/11/2023 07:06:48 06/08/20 23 06/08/2023 CBC W/DIF F absolute eosinophils 0.2 10'3/ uL 0.0-0. 6 Not Available [facility] (Lab) [address], [place], [address], 06/11/2023 07:06:48 06/08/20 23 06/08/2023 CBC W/DIF F absolute basophils 0.0 10'3/ uL 0.0-0. 1 Not Available [facility] (Lab) [address] [place], [address], 06/11/2023 07:06:48 06/08/20 23 06/08/2023 CBC W/DIF [...] resul ts are expec rebecca. Not Available [facility] (Lab) [address], [place], [address], 06/11/2023 07:06:48 06/08/20 23 06/08/2023 HEMOG LOBIN A1C hemoglobin A1C 5.0 % 0-5.6 The Ameri can Diabe ulises Assoc iatio n recom mends that a prima ry goal of thera py violetul d be a HBA1C of < 7% and that physi cians shoul d reeva luate the treat ment regim en in patie nts with HBA1C value s consi stent ly > 8%. <5.7% Lisa l 5.7 - 6.4% Incre ased risk for diabe ulises >=6.5 % Diagn ostic of diabe ulises <7.0% Goal of thera py >8.0% Actio n sugge sted Not Available [facility] (Lab) [address], [place], [address], 06/11/2023 07:06:49 06/08/20 23 06/08/2023 LIPID PANEL ,AMA (LDL- CALC) total cholesterol 159 mg/dL 0-199 Not Available [facility] (Lab) [address], [place], [address], 06/11/2023 07:06:49 06/08/20 23 06/08/2023 LIPID PANEL ,AMA (LDL- CALC) triglyceride s 134 mg/dL 0.00-1 50.00 NCEP Refer ence Value s for Trigl yceri salvador: Lisa l: <150 mg/dL Borde rline High: 150 - 199 mg/dL High: 200 - 499 mg/dL Very High: >/= 500 mg/dL Not Available [facility] (Lab) [address], [place], [address], 06/11/2023 07:06:49 06/08/20 23 06/08/2023 LIPID PANEL ,AMA (LDL- CALC) HDL cholesterol 53 mg/dL >40 Not Available [facility] (Lab) [address], [place], [address], 06/11/2023 07:06:49 06/08/20 23 06/08/2023 LIPID PANEL ,AMA (LDL- CALC) LDL cholesterol [...] mg/dL , HDL <40 mg/dL Not Available [facility] (Lab) [address], [place], [address], 06/11/2023 07:06:49 06/08/20 23 06/08/2023 LIPID PANEL ,AMA (LDL- CALC) non-HDL cholesterol 106 mg/dL no refere nce range A reaso nable goal for non-H DL ghada stero l is one that is 30 mg/dL highe r than the LDL ghada stero l goal. Not Available [facility] (Lab) [address] [place], [address], 06/11/2023 07:06:49 06/08/20 23 06/08/2023 LIPID PANEL ,AMA (LDL- CALC) chol/HDL ratio 3.0 . 0.0-5. 0 On February 16, 2023, [facility] labor atori fior medley ed the equat ion for calcu latin g estim ated low-d ensit y lipop rotei n-cho leste rol (LDL- C) from the Joleen lyald equat ion to the Sarah hill/Dhruv taylor equat ion. This new equat ion is only valid for lipid panel s with trigl yceri salvador < 400 mg/dL . Studi es have demon el ed that this new equat ion will impro ve the accur acy of LDL-C , espec ially in scena sanchez when LDL-C vanessa ntrat ions are relat ively low (< 100 mg/dL ), trigl yceri salvador are eleva rebecca, or patie nt is non-f astin g. Refer ences : - Sarah hill, Denton Morel, Gerardo Zafar , Jas hill, Leeroy Coffman, Bran [facility] , and Huseyin Pool . 2013. Comp ariso n of a Novel Metho d vs the Fried velasquez Equat ion for Estim ating Low-D ensit y Lipop rotei n Ghada stero l Level s from the Stand bobbi Lipid Profi le. HIRAM: The Journ al of the Ameri can Medic al Assoc iatio n 310 (19): 2060- . - Elisa diaz V, Sylvia J, Patel ar A, Dilma M, Jordyn e R, Franck diaz E, Sulaiman [facility] RS, Yrn SR, Sarah hill SS. Fast ing Versu s Nonfa sting and Low-D ensit y Lipop rotei n Ghada stero l Accur acy. Circu latio n. 2017Oct 26;137 (1):1 0-19. Not Available [facility] (Lab) [address] , [place], [address], 06/11/2023 07:06:49 06/08/20 23 06/08/2023 CMP(C OMPRE HENSI VE METAB OLIC PANEL ) sodium 141 mmol/ L 133-14 6 Not Available [facility] (Lab) [address], [place], [address], 06/11/2023 07:06:50 06/08/20 23 06/08/2023 CMP(C OMPRE HENSI VE METAB OLIC PANEL ) potassium 4.0 mmol/ L 3.5-5. 1 Not Available [facility] (Lab) [address], [place], [address], 06/11/2023 07:06:50 06/08/20 23 06/08/2023 CMP(C OMPRE HENSI VE METAB OLIC PANEL ) chloride 107 mmol/ L 98-107 Not Available [facility] (Lab) [address], [place], [address], 06/11/2023 07:06:50 06/08/20 23 06/08/2023 CMP(C OMPRE HENSI VE METAB OLIC PANEL ) carbon dioxide 24 mmol/ L 21-31 Not Available [facility] (Lab) [address], [place], [address], 06/11/2023 07:06:50 06/08/20 23 06/08/2023 CMP(C OMPRE HENSI VE METAB OLIC PANEL ) anion gap 10 mmol/ L 4-13 Not Available [facility] (Lab) [address], [place], [address], 06/11/2023 07:06:50 06/08/20 23 06/08/2023 CMP(C OMPRE HENSI VE METAB OLIC PANEL ) blood urea nitrogen 8 mg/dL 7-25 Not Available [facility] (Lab) [address], [place], [address], 06/11/2023 07:06:50 06/08/20 23 06/08/2023 CMP(C OMPRE HENSI VE METAB OLIC PANEL ) creatinine 0.88 mg/dL 0.60-1 .30 Not Available [facility] (Lab) [address], [place], [address], 06/11/2023 07:06:50 06/08/20 23 06/08/2023 CMP(C OMPRE HENSI VE METAB OLIC PANEL ) egfrcr (CKD-epi 2020) 83 mL/mi n/1.7 3_m2 >=60 Not Available [facility] (Lab) [address], [place], [address], 06/11/2023 07:06:50 06/08/20 23 06/08/2023 CMP(C OMPRE HENSI VE METAB OLIC PANEL ) calcium 9.4 mg/dL 8.3-10 .5 Not Available [facility] (Lab) [address], [place], [address], 06/11/2023 07:06:50 06/08/20 23 06/08/2023 CMP(C OMPRE HENSI VE METAB OLIC PANEL ) glucose 98 mg/dL 70-100 Not Available [facility] (Lab) [address], [place], [address], 06/11/2023 07:06:50 06/08/20 23 06/08/2023 CMP(C OMPRE HENSI VE METAB OLIC PANEL ) protein, total 6.2 g/dL 6.4-8. 3 low Not Available [facility] (Lab) [address], [place], [address], 06/11/2023 07:06:50 06/08/20 23 06/08/2023 CMP(C OMPRE HENSI VE METAB OLIC PANEL ) albumin 4.0 g/dL 3.5-5. 0 Not Available [facility] (Lab) [address], [place], [address], 06/11/2023 07:06:50 06/08/20 23 06/08/2023 CMP(C OMPRE HENSI VE METAB OLIC PANEL ) ALT 13 units /L 9-43 Not Available [facility] (Lab) [address], [place], [address], 06/11/2023 07:06:50 06/08/20 23 06/08/2023 CMP(C OMPRE HENSI VE METAB OLIC PANEL ) alkaline phosphatase 51 units /L 34-104 Not Available [facility] (Lab) [address], [place], [address], 06/11/2023 07:06:50 06/08/20 23 06/08/2023 CMP(C OMPRE HENSI VE METAB OLIC PANEL ) AST 15 units /L 13-39 Not Available [facility] (Lab) [address], [place], [address], 06/11/2023 07:06:50 06/08/20 23 06/08/2023 CMP(C OMPRE HENSI VE METAB OLIC PANEL ) bilirubin, total 0.4 mg/dL 0.2-1. 2 Not Available [facility] (Lab) [address], [place], [address], 06/11/2023 07:06:50 06/08/20 23 06/08/2023 TSH, REFLE X FREE T4 TSH 1.36 uIU/m L 0.30-5 .33 Not Available [facility] (Lab) [address], [place], [address], 06/11/2023 07:06:50 06/08/20 23 06/08/2023 FSH, LH, [...] 561-2 1280 pg/mL 3rd Trime ster8 525-> 40544 pg/mL Not Available [facility] (Lab) [address], [place], [address], 06/11/2023 07:06:51 06/08/20 23 06/08/2023 FSH, LH, ESTRA DIOL FSH 2.5 mIU/m L This assay was perfo rmed using [employer] ratio n reage nts and test kits. Value s obtai amparo with other assay metho ds or kits canno t be used inter [facility] eay . Femal es Folli cular : 3.5-1 2.5 mIU/m L Ovula tion: 4.7-2 1.5 mIU/m L Lutea l: 1.7-7 .7 mIU/m L Postm enopa use: 25.8- 134.8 mIU/m L Not Available [facility] (Lab) [address], [place], [address], 06/11/2023 07:06:51 06/08/20 23 06/08/2023 FSH, LH, ESTRA DIOL LH 3.8 mIU/m L This assay was perfo rmed using [employer] reage nts and test kits. Value s obtai amparo with other assay metho ds or kits canno t be used inter [facility] . Femal es Mid-F ollic ular: 2.4-1 2.6 mIU/m L Mid-C ycle: 14.0- 95.6 mIU/m L Mid-L uteal : 1.0-1 1.4 mIU/m L Postm enopa use: 7.7-5 8.5 mIU/m L Not Available [facility] (Lab) [address], [place], [address], 06/11/2023 07:06:51 06/08/20 23 06/08/2023 VITAM IN D, 25-OH (TOTA L D2/D3 ) vitamin D, 25-hydroxy, total 40.1 NG/mL 30.0-1 00.0 [place]ive of Defic iency : <20 ng/mL [place] stive of Insuf ficie ncy: 20-29 ng/mL [place] stive of Suffi cienc y: 30-10 0 ng/mL Sugge stive of Toxic ity: >150 ng/mL Not Available [facility] (Lab) [address] [place], [address], 06/11/2023 07:06:51 Result Notes None recorded. Problems Name Problem SNOMED Code Status Onset Date Resolution Date Notes Provider Name and Address Organization Details Recorded Time SNOMED CT Concept Active 2015 Encntr for general adult medical exam w/o abnormal findings;R ecorded Elsewhere: No Locatio n: [facility] rce: EHR Chroni c: N Practice ID: 0001 Billa ble Time: 10:30:00 AM Not Available [facility] 0 15:59:51 Disorder of breast 83405258 Active 2015 Disorder of breast, unspecifie d;Recorded Elsewhere: No Locatio n: [facility] rce: EHR Chroni c: N Practice ID: 0001 Billa ble Time: 10:30:00 AM Not Available [facility] 0 15:59:51 Breast lump 38690180 Active 2015 Unspecifie d lump in breast;Rec orded Elsewhere: No Locatio n: [facility] rce: EHR Chroni c: N Practice ID: 0001 Billa ble Time: 01:02:12 PM Not Available [facility] 0 15:59:51 Breast lump Active 2015 Fibrocysti c disease of breast;Rec orded Elsewhere: No Locatio n: [facility] rce: EHR Chroni c: N Practice ID: 0001 Billa ble Time: 01:45:00 PM Not Available [facility] 0 15:59:[address] Concept Active 2016 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) (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) w/o abn findings;R ecorded Elsewhere: No Locatio n: [facility] rce: EHR Chroni c: N Practice ID: 0001 Billa ble Time: 01:00:00 PM Not Available [facility] 0 15:59:51 Education Active 2016 Encounter for oth general cnsl and advice on contracept ion;Practi ce ID: 0001 Not Available [facility] 0 15:59:51 Sterilizat ion procedure Active 2016 Encounter for sterilizat ion;Record ed Elsewhere: No Locatio n: [facility] rce: EHR Chroni c: N Practice ID: 0001 Billa ble Time: 03:00:00 PM Not Available [facility] 0 15:59:51 Uterine leiomyoma [id number] Active 2017 Leiomyoma of uterus;Rec orded Elsewhere: No Locatio n: [facility] rce: EHR Chroni c: N Practice ID: 0001 Billa ble Time: 05:00:00 PM Not Available [facility] 0 15:59:51 Problem Notes None recorded. Procedures Surgical History Date Name Laterality Status Provider Name and Address Organization Details Recorded Time 1 Date of Last Pap Smear completed [facility] 06/08/2023 18:29:13 Tubal Ligation completed [facility] 06/08/2023 18:29:22 Imaging Results None recorded. Procedure Notes None recorded. Medical Equipment None Reported. Allergies Allergen ID Allergen Name Allergen Category Reaction Reaction Severity Criticality Documentation Date Start Date Code Code System Note Provider Name and Address Organization Details Recorded Time 47069 Substance with sulfonami de structure and antibacte rial mechanism of action (substanc e) medicatio n Not available Not available Not available 05/08/2025 [id number] SNJUSTINE Loya JARVIS [address], [place], [address] [place] [address], P.C. 5 17:35:52 Medications Name Sig Start Date Stop Date Status Note LastModified by Organization Details LastModified Time azithromy glenda 250 mg tablet FOLLOW PACKAGE DIRECTIO NS 05/08 completed Not Available Not Available Not Available benzonata te 200 mg capsule TAKE 1 CAPSULE BY MOUTH THREE TIMES DAILY NEEDED FOR COUGH 05/08 completed Not Available Not Available Not Available hydroxyzi ne HCl 50 mg tablet TAKE 1 TO 2 TABLETS BY MOUTH EVERY NIGHT AT BEDTIME NEEDED FOR SLEEP 05/08 completed Not Available Not Available Not Available sulfameth oxazole 800 mg-trimet hoprim 160 mg tablet TAKE 1 TABLET BY MOUTH TWICE DAILY 05/08 completed Not Available Not Available Not Available amoxicill in 500 mg tablet TAKE 1 TABLET BY MOUTH THREE TIMES DAILY UNTIL GONE 06/08 completed Not Available Not Available Not Available alprazola m 0.25 mg tablet TAKE 1 TABLET BY MOUTH TWICE DAILY NEEDED FOR ANXIETY active Not Available Not Available No t Available cephalexi n 500 mg capsule TAKE 1 CAPSULE BY MOUTH THREE TIMES DAILY FOR 7 DAYS 05/05 completed Not Available Not Available Not Available prednison e 50 mg tablet TAKE 1 TABLET BY MOUTH DAILY 05/08 completed Not Available Not Available Not Available levofloxa glenda 500 mg tablet Take 1 tablet every 24 hours by oral route. active Not Available Not Available No t Available albuterol sulfate HFA 90 mcg/actua tion aerosol inhaler INHALE 2 PUFFS BY MOUTH FOUR TIMES DAILY NEEDED FOR SHORTNES S OF BREATH OR WHEEZING 05/08 completed Not Available Not Available Not Available dexametha sone 0.5 mg tablet TAKE 1 TABLET BY MOUTH THREE TIMES DAILY UNTIL ALL TAKEN 06/08 completed Not Available Not Available Not Available Ambien 5 mg tablet take 2 tablet by oral route every day at bedtime 09/07 completed Prescrib ed Elsewher e: Yes Loca tion: [facility] odify By: haydee suer DateTime : 04/09/20 10:30:00 AM Not Available Not Available Not Available aripipraz ole 5 mg tablet TAKE 1 TABLET BY MOUTH DAILY 06/08 completed Not Available Not Available Not Available bupropion HCl XL 300 mg 24 hr tablet, extended release TAKE 1 TABLET BY MOUTH DAILY active Not Available Not Available No t Available duloxetin e 30 mg capsule,d elayed release TALE 3 CAPSULES BY MOUTH EVERY MORNING active Not Available Not Available No t Available Cymbalta 20 mg capsule,d elayed release take 3 Capsule by oral route every day 06/08 completed Prescrib ed Elsewher e: Yes [facility] odify By: haydee roweunter DateTime : 04/09/20 16 10:30:00 AM Not Available Not Available Not Available Cymbalta 60 mg capsule,d elayed release Take 1 capsule every day by oral route. 05/08 completed Not Available Not Available Not Available Cymbalta 06/08 completed Not Available Not Available Not Available aripipraz ole 2 mg tablet TAKE 1 TABLET BY MOUTH EVERY NIGHT AT BEDTIME 06/08 completed Not Available Not Available Not Available lisdexamf etamine 50 mg capsule TAKE 1 CAPSULE BY MOUTH EVERY MORNING active Not Available Not Available No t Available lisdexamf etamine 30 mg capsule TAKE 1 CAPSULE BY MOUTH EVERY DAY IN THE MORNING active Not Available Not Available No t Available lisdexamf etamine 20 mg capsule TAKE 1 CAPSULE BY MOUTH EVERY MORNING (WITH 30 MG CAPSULE) active Not Available Not Available No t Available lisdexamf etamine 40 mg capsule TAKE 1 CAPSULE BY MOUTH EVERY MORNING active Not Available Not Available No t Available lisdexamf etamine 10 mg chewable tablet TAKE 1 TABLET BY MOUTH EVERY DAY IN THE MORNING 05/08 completed Not Available Not Available Not Available Vitals Date Recorded Body height Body mass index (BMI) Body weight Systolic And Diastolic Provider Name and Address Organization Details Last Updated DateTime 05/08/2025 165.1 cm 28.6 kg/m2 56816.89 g 122/82 mm[Hg] Destiny Merida [facility] 05/08/2025 17:15:02 Date Recorded Body height Body mass index (BMI) Body weight Systolic And Diastolic Provider Name and Address Organization Details Last Updated DateTime 06/08/2023 165.1 cm 30.6 kg/m2 27244 g 125/76 mm[Hg] Christa Arenas [facility] 06/08/2023 18:29:02 Social History Question Answer Notes LastModified by Organizat ion Details LastModified Time Are You Blind Or Do You Have Difficulty Seeing? No Information not available 06/08/2023 What Is Your Level Of Caffeine Consumption? Moderate Information not available 06/08/2023 In The 14 Days Before Symptom Onset, Have You Had Close Contact With A Laboratory-confirme d COVID-19 While That Case Was Ill? No [...] Or The Highest Degree You Have Received? [id number] Information not available 06/08/2023 Are There Any [...] Functional Status Question Answer Note LastModified by Organizat ion Details LastModified Time Do you use any illicit or recreational drugs? No Information not available 06/08/2023 What is your level of alcohol consumption? Occasional Information not available 06/08/2023 Are you able to walk? 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 Moderate Information not available 06/08/2023 Mental Status Question Answer Note LastModified by Organization D etails LastModified Time Do you feel stressed (tense, restless, nervous, or anxious, or unable to sleep at night)? [id number] Information not available 06/08/2023 Family History Relationship Description Onset Age of [...] Depression/ depression Y Gynecological History Statement/Question Response Abnormal Pap N Flow Moderate Date of Last Mammogram Date of LMP 03/26/2025 N Was last menstrual period normal Y STIs/STDs N HPV Vaccine N Duration of Flow (days) 2 Current Control Method Tubal Ligat ion Are cycles usually normal N Date of Last Colonoscopy Sexually Active? Y Menses Monthly No Age of first menstrual cycle 11 Date of Last Pap Smear 06/14/2021 Sexual Problems? N LMP Unknown N Obstetrics History GPAL:G 0 P 0 0 0 0 Past Encounters Encounter ID Performer Location Encounter Start Date Encounter Closed Date Diagnosis/Indication Diagnosis SNOMED-CT Code Diagnosis ICD10 Code Diagnosis Note [id number] Alina Morales , [facility] [address] [address] 06/08/2023 18:08:33 06/09/2023 09:58:09 Gynecologic examination 24073807 Z01.419 Suggested Calcium with Vitamin D 1200-1500m g daily. Patient advised to get an annual flu shot in the fall and she could obtain at [facility] or [facility] care clinic. Also to obtain TDap vaccinatio n [...] Screen naDexa Screen naRoutine Labs PCP Adult [facility] th examination 507844631 Z00.00 Will await labsHx of thyroid issues 5yrs ago Vitamin D deficiency 347 82896 E55.9 Irregular periods 935538 07 N92.6 Perimenopa use.q1-2mo s Screening mammography 24 469467 Z12.31 Major depr essive disorder 487392603 F32.[address]Suggest ed mentioning Auvelity to see if she is a good candidate for this medication . [id number] DAYLIN King Sc[place]ey [address] [address] 05/08/2025 17:07:44 05/09/2025 12:15:24 Gynecologic examination 48568290 Z01.419 WWEB - BTLPap - done todaySTI screen - declinedMa mmogram - has scheduled/ order from PCPColon cancer screening - cologuard UTD/PCPRou rajesh labs - UTD/PCPRTC in 1 yr or sooner if needed Suggested Calcium with Vitamin D daily. Patient advised to get an annual flu shot in the fall and she could obtain at local pharmacy. Also to obtain TDap vaccinatio n if you have not had one in the last 10 years. Recommend yearly mammograms . Encouraged monthly self breast exams. Encourage safe sexual practices, to use condoms and limit partners if not already in a monogamous relationsh ip. Engage in regular exercise. Avoid tobacco and illicit drugs. This lifestyle behavior pattern will lead to less health conditions and longer life span. If BMI greater than 25 dietary consult advised. All questions have been answered. Menopausal flushing 1983 05355 N95.1 reviewed management options (hormonal vs non-hormon al)obed note handout given, questions answered Vaginal odor [id number] N 89.8 vaginitis panel sentvulvar care guidelines discussed, questions answered Time spent in visit is a total of 30 mins with at least 50% of visit consisting of counseling and review of plan of care. Health Concerns Section Related Observation LastModified by Organization Detai ls LastModified Time None Recorded Concern Status LastModified by Organization Details LastModified Time None Recorded Advance Directives Directive None Recorded Payers Insurance Date Sequence Insurance Name Policy Number Policy Early Covered Member ID Early Member ID Guarantor Name 05/07/2025 1 [employer] [id number] Amanda [id number] Amanda De La Rosa 05/07/2025 1 [facility] (PPO) [id number] 3 Amanda De La Rosa [id number] Amanda De La Rosa Notes Date Note Type Note Provider Name [...] yearly pap smears; Needs to schedule mammogram DAYLIN Conway- [address], [place], [address], [facility] 06/08/2023 18:50:35 05/08/2025 text/html Annual GYNReport ed bypatient.Menstrua l cycle:Normal menses Urinary symptoms:No hematuria; No incontinence Vulva:No genital lesion Vagina:Foul-smelli ng Breast:No breast pain; No breast lump; No nipple discharge Current Contraception:Sati sfied with current contraception; Tubal ligation Sexual complaints:No sexual complaints; No pain during intercourse; Normal libido Menopausal Symptoms:No menopausal symptoms; Normal vaginal lubrication Psychological symptoms:No depression; No anxiety; No PMDD Preventive measures:Encourage self breast examination; Encourage regular exercise; Encourage no tobacco use; Encourage regular mammograms starting age 38Notes:45yo wweBC - BTLlast pap 05/2023 : nilm, HPV (-)periods every 1-2 months over the past yr, has had some VMSmammogram : scheduled for ologuard UTD vaginal odor at times DAYLIN King [address], [place], [address], [facility] 05/09/2025 09:28:21 OBGyn Episode No OBEpisode recorded.
[2025-05-10 22:17] VITALS: BP 123/82; PULSE 99; RESP 16; TEMP 36.6; O2SAT 99
--- NOTE | 2025-05-11 00:06 | PC.NURSE ---
Pt and family up to triage desk stating that they are leaving. Pt axox4. Encouraged pt to stay for MSE, but declines at this time. Wheeled to parking lot by family.
== END 2025-05-11 00:06 | disposition left against medical advice (07) ==
PROVIDERS: PCP Family Medicine
DX: R10.9 Unspecified abdominal pain (principal)
CPT/HCPCS: 99199